=== PATIENT | male | born 1995 | race Hispanic/Latino ===

== ENCOUNTER 2016-04-04 20:53 | Emergency (ER) | payer OTHER ==
[~2016-04-04] VITALS: Ht 180.3 cm; Wt 88.5 kg
[2016-04-04 21:19] VITALS: BP 147/77
--- NOTE | 2016-04-04 22:17 | ED SKIN/ALLERGY COMPLAINT ---
History of Present Illness General Chief Complaint: Animal/Insect Bite Stated Complaint: TICK BITE TO LOW BACK Source: patient Exam Limitations: no limitations Vital Signs & Intake/Output Vital Signs & Intake/Output Vital Signs Date Time Temp Pulse Resp B/P Pulse O2 O2 Flow FiO2 Ox Delivery Rate 04/049 98.4 94 18 147/77 98 Room Air ED Intake and Output 04/05 0000 04/04 1200 Intake Total Output Total Balance Patient 195 lb Weight Allergies Coded Allergies: Penicillins (Mild, RASH 04/04/16) Reconcile Medications No Known Home Medications Triage Note: PT TO TRIAGE WITH C/O TICK BITE TO LEFT LOWER BACK LAST NIGHT. PT PULLED TICK OUT TODAY BUT NOT SURE IF TICK COMPLETELY OUT. +REDNESS TO TICK BITE. Triage Nurses Notes Reviewed? yes HPI: Patient is a 20 year old male presents complaining of tick bite to his right low back. Patient reports he was outside yesterday and believes that he had the tick bite then. Patient removed the tick today. Noticed redness and bruising to the area after removing the tick. Pain is moderate, worsens with palpation. Denies fevers. Past History Travel History Traveled to [place] past 21 day No Medical History Any Pertinent Medical History? none Surgical History Surgical History: non-contributory Psychosocial History What is your primary language Nauruan Tobacco Use: Current Daily Use Daily Tobacco Use Amount/Type: => 5 Cigarettes daily Family History Hx Contributory? No Review of Systems Review of Systems Constitutional: Denies: chills, fever. Respiratory: Denies: short of breath. Cardiovascular: Denies: chest pain. GI: Denies: abdominal pain, nausea, vomiting. Musculoskeletal: Reports: no symptoms. Skin: Reports: see HPI. Neurological/Psychological: Reports: no symptoms. Hematologic/Endocrine: Reports: no symptoms. Immunologic/Allergic: Reports: no symptoms. Physical Exam Physical Exam General Appearance: well developed/nourished, alert, awake Head: atraumatic, normal appearance Eyes: Bilateral: normal appearance, PERRL, EOMI. Ears, Nose, Throat: hearing grossly normal Neck: normal inspection, supple, full range of motion Respiratory: no respiratory distress Back: 0.5 cm ecchymotic area to left lumbar area with 2-3mm of surrounding erythema. Mild tenderness Extremities: normal inspection, normal range of motion Neurologic/Psych: no motor/sensory deficits, awake, alert, oriented x 3, normal gait, normal mood/affect Skin: see back exam Progress Differential Diagnosis: abscess/cellulitis, allergic reaction, contact dermatitis, lyme disease, erythema migrans Plan of Care: Current Medications Sig/Vince Start time Last Medication Dose Stop Time Status Admin Doxycycline Hyclate 200 MG ONCE ONE 04/04 2229 UNVr (Vibramycin) 04/04 2230 Patient low risk for lyme transmission given likely time course less than 24 hours. Does not appear to have an abscess or cellulitis Will give prophylactic dose of doxycycline. (LOIDA OCLON,) Departure Departure Time of Disposition: 2221 Disposition: HOME OR SELF CARE Condition: Stable Clinical Impression Primary Impression: Tick bite of back Qualifiers: Encounter type: initial encounter Qualified Codes: S30.860A - Insect bite (nonvenomous) of lower back and pelvis, initial encounter; W57.XXXA - Bitten or stung by nonvenomous insect and other nonvenomous arthropods, initial encounter Referrals: TINY BEARDEN,CLIFFORD (PCP/Family) Additional Instructions: Return to the ER if redness spreading, fevers or increasing pain to the area. Departure Forms: Customer Survey General Discharge Information Prescriptions: Current Visit Scripts No Known Home Medications
== END 2016-04-04 22:34 ==
LOC: ERH 20:53
DX: S30.860A Insect bite (nonvenomous) of lower back and pelvis, initial encounter (principal); W57.XXXA Bitten or stung by nonvenomous insect and other nonvenomous arthropods, initial encounter

== ENCOUNTER 2016-05-29 11:16 | Emergency (ER) | payer OTHER ==
[~2016-05-29] VITALS: Ht 180.3 cm; Wt 90.7 kg
[2016-05-29 11:39] VITALS: BP 145/85
--- NOTE | 2016-05-29 12:25 | ED GENERAL ADULT ---
History of Present Illness General Chief Complaint: Skin Rash/ Abcess Stated Complaint: RASH Source: patient Exam Limitations: no limitations Vital Signs & Intake/Output Vital Signs & Intake/Output Vital Signs Date Time Temp Pulse Resp B/P B/P Pulse O2 O2 Flow FiO2 Mean Ox Delivery Rate 05/29 1139 97.2 72 18 145/85 99 Room Air Allergies Coded Allergies: Penicillins (Mild, RASH 04/04/16) Triage Note: COMPLAINS OF FINE ITCHY RASH ON ARMS AND BACK OF HIS NECK FOR THE PAST WEEK. DENIES ANY MEDICATION USE OR NEW PRODUCTS Triage Nurses Notes Reviewed? yes Onset: Gradual Duration: week(s): (1) Timing: no prior history Injury Environment: home Severity: moderate Severity Numbers: 6 No Modifying Factors: none HPI: Patient is a 20-year-old male presenting to the emergency department with chief complaint of pruritic rash on the upper extremities now spreading to the neck has been going on for the last 1 week. Rash seems to get worse throughout the day. He's been putting Aquaphor on it without relief. Denies any new exposures. No change in soaps or detergents. No rales with similar rash. Denies recent travel. No recent antibiotic use. Denies any fevers or recent colds. Denies any pain with the rash. No rash on the lower extremities or abdomen. (GAVIN WILLETT) Reconcile Medications Methylprednisolone. (Medrol) 4 MG TAB.DS.PK 1 DP PO AD rash 6 on day 1 then reduce by one tablet daily until gone (RACHELLE BEARDEN,HERMELINDA) Past History Travel History Traveled to [place] past 21 day No Medical History Any Pertinent Medical History? see below for history Neurological: NONE EENT: NONE Cardiovascular: NONE Respiratory: NONE Gastrointestinal: NONE Hepatic: NONE Renal: NONE Musculoskeletal: NONE Psychiatric: NONE Endocrine: NONE Blood Disorders: NONE Cancer(s): NONE SHIRT OPERATOR/Reproductive: NONE Surgical History Surgical History: non-contributory Psychosocial History What is your primary language Mongolian Tobacco Use: Current Daily Use Daily Tobacco Use Amount/Type: => 5 Cigarettes daily ETOH Use: denies use Illicit Drug Use: denies illicit drug use Family History Hx Contributory? No (GAVIN WILLETT) Review of Systems Review of Systems Constitutional: Reports: no symptoms. Comments Review of systems: See HPI, All other systems negative. Constitutional, no chills fever or weight loss HEENT: No visual changes no sore throat no congestion Cardiovascular: No chest pain ,palpitation , orthopnea or ankle swelling Skin, no jaundice Respiratory: No dyspnea cough sputum or hemoptysis GI: No nausea no vomiting Muscle skeletal: no back pain, no neck pain, Neurologic: No numbness no confusion Psych: No stress anxiety or depression,. Heme/endocrine: No bruising no bleeding no polyuria or polydipsia Immunology: No splenectomy or history of AIDS (GAVIN WILLETT) Physical Exam Physical Exam General Appearance: well developed/nourished, no apparent distress, alert, awake , comfortable Comments: Well-developed well-nourished person in no acute distress HEENT: Pupils equally round and reactive to light and accommodation. Nose is atraumatic. Pharynx normal. No swelling or edema. Moist oral mucosa. No signs of rash in the oral cavity. Neck: Supple, no lymphadenopathy Back: Nontender Cardiovascular: Regular rate and rhythms no murmurs rubs or gallops, normal JVP Respiratory: Chest nontender. No respiratory distress.breath sounds clear to auscultation bilaterally Extremity: No edema Neuro: Alert oriented x3 Skin: Diffuse maculopapular erythematous rash noted on the upper extremities and neck. No rash noted on the abdomen or lower extremities. Rash is blanchable. Psych: Mood and affect is normal, memory and judgment is normal. Core Measures ACS in differential dx? No CVA/TIA Diagnosis: No Severe Sepsis Present: No Septic Shock Present: No (GAVIN WILLETT) Progress Differential Diagnoses I considered the following diagnoses in my evaluation of the patient: Nonspecific rash, allergic reaction, viral exanthem, contact dermatitis Plan of Care: Patient be started on Medrol Dosepak and Benadryl when necessary. He will follow up with dermatology if symptoms worsen. Initial ED EKG: none (GAVIN WILLETT) Departure Departure Time of Disposition: 7 Disposition: HOME OR SELF CARE Condition: Stable Clinical Impression Primary Impression: Rash Referrals: PATIENT HAS NO PRIMARY CARE DR (PCP/Family) Additional Instructions: Follow-up with dermatology if symptoms worsen. Take Medrol dosepak and Benadryl as directed. Return for worsening symptoms or concerns. Departure Forms: Customer Survey General Discharge Information Prescriptions: Current Visit Scripts Methylprednisolone. (Medrol) 1 DP PO AD #1 DP 6 on day 1 then reduce by one tablet daily until gone (GAVIN WILLETT) PA/DIGITAL MEDIA DESIGNER Co-Sign Statement Statement: ED Attending supervision documentation- [] I saw and evaluated the patient. I have also reviewed all the pertinent lab results and diagnostic results. I agree with the findings and the plan of care as documented in the PA's/DIGITAL MEDIA DESIGNER's documentation. [X] I have reviewed the ED Record and agree with the PA's/DIGITAL MEDIA DESIGNER's documentation. [] Additions or exceptions (if any) to the PAs/DIGITAL MEDIA DESIGNER's note and plan are summarized below: [] (RACHELLE BEARDEN,HERMELINDA) Critical Care Note Critical Care Note Critical Care Time: non-applicable (GAVIN WILLETT)
[2016-05-29] MEDS ORDERED: MEDROL4 M2 PO (12:38)
== END 2016-05-29 12:47 ==
LOC: ERH 11:16
DX: R21 Rash and other nonspecific skin eruption (principal)